=== PATIENT | female | born 1975 | race Caucasian/White ===

== ENCOUNTER 2021-09-22 10:54 | Outpatient (REF) | payer OTHER, SELFPAY ==
--- NOTE | ~2021-09-22 | XR_ITS ---
EXAMINATION: XR LUMBOSACRAL SPINE WITH OBLIQUES CLINICAL INFORMATION: Pain COMPARISON: None TECHNIQUE: AP, both oblique, and lateral views of the lumbar spine. Lateral view of the lumbosacral junction. FINDINGS: The vertebral bodies and posterior elements are normal. The disc spaces are preserved and the vertebral alignment is normal. The paraspinal soft tissues are normal. XR/XR lumbar spine 4V min IMPRESSION: Unremarkable examination.
--- NOTE | 2021-09-22 11:02 | ECG_ITS ---
Test Reason : F31.9 Blood Pressure : / mmHG Vent. Rate : 076 BPM Atrial Rate : 076 BPM P-R Int : 148 ms QRS Dur : 086 ms QT Int : 356 ms P-R-T Axes : 033 048 -20 degrees QTc Int : 400 ms Poor data quality, interpretation may be adversely affected Normal sinus rhythm Nonspecific T wave abnormality Abnormal ECG No previous ECGs available Referred By: Wei Hooker Electronically Signed By:
[2021-09-22 11:50] LABS: Estimated Average Glucose 97 mg/dL
[2021-09-22 11:55] LABS: Hematocrit 39.1 % (37.0-47.0); Mean Corpuscular HGB Conc 33.2 g/dl (31.0-35.0); Mean Corpuscular Hemoglobin 31.9 pg (27.0-33.0); Mean Corpuscular Volume 96.1 fL (80.0-98.0); Mean Platelet Volume 9.8 fL (9.4-12.3); Platelet Count 252 X10*3/uL (160-400); Red Blood Count 4.07 X10*6/uL (4.20-5.50); Red Cell Distribution Width 12.5 % (11.0-16.0); White Blood Count 5.2 X10*3/uL (4.8-10.8)
[2021-09-22 12:11] LABS: Lithium < 0.10 mmol/L (0.60-1.20)
[2021-09-22 12:21] LABS: Alanine Aminotransferase 8 U/L (0-31); Albumin Level 4.3 g/dL (3.5-5.0); Alkaline Phosphatase 63 U/L (39-117); Anion Gap 11 (12-20); Aspartate Amino Transferase 13 U/L (5-31); Bilirubin Total 0.5 mg/dL (0.0-1.0); Blood Urea Nitrogen 17 mg/dL (9-16); Calcium 8.9 mg/dL (8.4-10.2); Carbon Dioxide 19 mmol/L (22-29); Chloride 111 mmol/L (96-108); Cholesterol 134 mg/dL; Estimated Glomerular Filt Rate > 60; Glucose Fasting 109 mg/dL (60-99); HDL Cholesterol 51 mg/dL; LDL Cholesterol Calculated 58 mg/dl; Potassium 3.8 mmol/L (3.3-5.1); Sodium 137 mmol/L (135-145); Total Protein 6.7 g/dL (6.5-8.0); Triglycerides 129 mg/dL
[2021-09-22 12:26] LABS: TSH reflex Free T4 1.23 uIU/mL (0.32-4.0)
== END 2021-09-22 10:55 | disposition home or self-care (01) ==
LOC: HO.LAB 10:54
PROVIDERS: PCP Physician Assistant; Visit Provider Physician Assistant
DX: Z13.29 Encounter for screening for other suspected endocrine disorder (principal); I10 Essential (primary) hypertension; F31.9 Bipolar disorder, unspecified; M51.9 Unspecified thoracic, thoracolumbar and lumbosacral intervertebral disc disorder; Z79.899 Other long term (current) drug therapy
CPT/HCPCS: 36415; 72110; 80053; 80061; 80178; 83036; 84443; 85027; 93005

== ENCOUNTER 2022-02-06 16:57 | Outpatient (REF) | payer OTHER, SELFPAY ==
--- NOTE | ~2022-02-06 | XR_ITS ---
EXAMINATION: XR TIBIA AND FIBULA, LEFT CLINICAL INFORMATION: Contusion the left foot COMPARISON: None TECHNIQUE: AP and lateral views of the left tibia and fibula were obtained. FINDINGS: The bones and soft tissues are normal. No fracture. No osseous lesions. XR/XR tibia fibula LT 2V IMPRESSION: Normal left tibia and fibula.
== END 2022-02-06 16:58 | disposition home or self-care (01) ==
LOC: HO.HMGCX 16:57
PROVIDERS: PCP Physician Assistant; Visit Provider Internal Medicine
DX: S90.32XA Contusion of left foot, initial encounter (principal)
CPT/HCPCS: 73590

== ENCOUNTER → 2022-02-17 10:25 | Outpatient (BNVA) | payer OTHER, SELFPAY | PROVIDERS: PCP Physician Assistant; Visit Provider Physician Assistant | DX: M84.369A Stress fracture, unspecified tibia and fibula, initial encounter for fracture (principal) | CPT/HCPCS: 99202 ==

== ENCOUNTER 2022-02-24 08:54 | Outpatient (REF) | payer OTHER, SELFPAY ==
--- NOTE | ~2022-02-24 | MR_ITS ---
EXAMINATION: MRI LOWER LEG LEFT WITHOUT CONTRAST CLINICAL INFORMATION: Pain. Stress fracture. Patient reports medial tibial pain for 4 weeks. COMPARISON: Radiographs of the lower extremity from 02/06/2022. TECHNIQUE: Noncontrast MR imaging examination of the left lower extremity is performed. Axial T1-weighted images (without and with fat suppression), axial fat-suppressed T2-weighted, coronal T1-weighted and sagittal STIR images are obtained. FINDINGS: Alignment is normal at the knee and ankle. There is an area of subarticular edema-like signal change at the medial tibial plateau. No tibial plateau fracture. A horizontal stress fracture line in the medial tibial metaphysis measures 0.9 cm wide. Patchy bone marrow edema is present around the region of the stress fracture (grade 4 stress injury). There is mild edema along the periosteal surface of the mid to distal tibial diaphysis, and there is focal mild periosteal reaction along the medial surface of the distal diaphysis. This has the appearance of grade 2 to grade 3 stress injury. The fibula is normal. The visualized musculotendinous structures are normal. There is no evidence of Achilles tendinopathy. MR/MR lower leg LT wo con IMPRESSION: Bone marrow edema is present around a stress fracture of the proximal medial tibial metaphysis. Also, there is periosteal edema and focal mild periosteal reaction of the distal tibial diaphysis at the site of grade 2 to grade 3 stress injury.
== END 2022-02-24 08:55 | disposition home or self-care (01) ==
LOC: HO.MRI 08:54
PROVIDERS: PCP Physician Assistant; Visit Provider Physician Assistant
DX: M84.362A Stress fracture, left tibia, initial encounter for fracture (principal)
CPT/HCPCS: 73718

== ENCOUNTER → 2022-05-04 13:23 | Outpatient (BNVA) | payer OTHER, SELFPAY | PROVIDERS: Visit Provider Physician Assistant | DX: M84.362D Stress fracture, left tibia, subsequent encounter for fracture with routine healing (principal); M65.4 Radial styloid tenosynovitis [de Quervain] | CPT/HCPCS: 99212; J1100 ==

== ENCOUNTER 2022-06-26 14:20 | Outpatient (REF) | payer BC, OTHER, SELFPAY ==
--- NOTE | ~2022-06-26 | US_ITS ---
EXAMINATION: US VENOUS ULTRASOUND WITH DOPPLER LOWER EXTREMITY, LEFT CLINICAL INFORMATION: Edema and pain. COMPARISON: None TECHNIQUE: Ultrasound of the deep veins is performed from the hip to the calf with compression sonography and color and pulse Doppler assessment. Spectral analysis with color-flow imaging is performed. FINDINGS: There is normal venous compression and respiratory variation and augmented flow. The visualized common femoral vein, superficial femoral vein, profunda femoral vein, popliteal vein, and the trifurcation region shows no evidence of deep venous thrombosis. There is no significant popliteal fossa cyst. If the patient's symptoms persist, followup ultrasound in 5 days 7 days might be of value to exclude proximal propagation from a non-visualized calf vein. US/US venous duplex LE LT IMPRESSION: No DVT demonstrated in the left lower extremity.
== END 2022-06-26 14:21 | disposition home or self-care (01) ==
LOC: HO.US 14:20
PROVIDERS: PCP Physician Assistant; Visit Provider Physician Assistant
DX: R60.9 Edema, unspecified (principal); M79.89 Other specified soft tissue disorders
CPT/HCPCS: 93971

== ENCOUNTER 2023-09-05 13:45 | Outpatient (AMB) | payer BC, OTHER, SELFPAY ==
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
== END 2023-09-05 14:30 | disposition home or self-care (01) ==
LOC: HO.HOP 13:45
PROVIDERS: PCP Physician Assistant; Visit Provider Clinical Nurse Specialist Psychiatric/Mental Health
DX: F31.9 Bipolar disorder, unspecified (principal); F43.10 Post-traumatic stress disorder, unspecified; F90.0 Attention-deficit hyperactivity disorder, predominantly inattentive type; I10 Essential (primary) hypertension
CPT/HCPCS: 99214

== ENCOUNTER → 2023-09-05 13:45 | Outpatient (BNVA) | payer BC, OTHER, SELFPAY | PROVIDERS: PCP Physician Assistant; Visit Provider Clinical Nurse Specialist Psychiatric/Mental Health ==

== ENCOUNTER 2023-12-06 13:13 | Outpatient (AMB) | payer BC, SELFPAY ==
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
== END 2023-12-06 13:58 | disposition home or self-care (01) ==
LOC: HO.HOP 13:13
PROVIDERS: PCP Physician Assistant; Visit Provider Clinical Nurse Specialist Psychiatric/Mental Health
DX: F43.10 Post-traumatic stress disorder, unspecified (principal); F90.0 Attention-deficit hyperactivity disorder, predominantly inattentive type; F31.81 Bipolar II disorder
CPT/HCPCS: 90833; 99214

== ENCOUNTER → 2023-12-06 13:13 | Outpatient (BNVA) | payer BC, OTHER, SELFPAY | PROVIDERS: PCP Physician Assistant; Visit Provider Clinical Nurse Specialist Psychiatric/Mental Health ==

== ENCOUNTER 2024-03-06 12:58 | Outpatient (AMB) | payer BC, SELFPAY ==
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
== END 2024-03-06 13:30 | disposition home or self-care (01) ==
LOC: HO.HOP 12:58
PROVIDERS: PCP Physician Assistant; Visit Provider Clinical Nurse Specialist Psychiatric/Mental Health
DX: F31.81 Bipolar II disorder (principal); F90.0 Attention-deficit hyperactivity disorder, predominantly inattentive type
CPT/HCPCS: 99214

== ENCOUNTER → 2024-03-06 12:58 | Outpatient (BNVA) | payer BC, SELFPAY | PROVIDERS: PCP Physician Assistant; Visit Provider Clinical Nurse Specialist Psychiatric/Mental Health ==

== ENCOUNTER 2024-04-02 13:07 | Outpatient (AMB) | payer BC, SELFPAY ==
[2024-04-02 13:19] VITALS: BP 142/90; PULSE 103; O2SAT 98; BMI 25.5
--- NOTE | 2024-04-02 13:19 | A.OFFPC_ITS ---
Vital Signs 04/02/24 13:19 Height 4 ft 11 in Weight 126 lb 8 oz BMI 25.5 BP 142/90 H Blood Pressure Location Lt brachial Position Sitting Pulse 103 H Pulse Source Pulse Oximeter Pulse Oximetry (%) 98 Oxygen Delivery Method Room Air Intake Visit Reasons: PE - see comments Intake Note: Patient is here today for a physical. [email or web address] Java Developer Required: No Accompanied by: Self / Same As Patient Allergies SEASONAL ALLERGIES Allergy (Intermediate, Uncoded 04/02/24 13:28) SNEEZING, COUGH seasonal Allergy (Unknown, Uncoded 04/02/24 13:28) Rhinitis Medication List - Last Reconciled 04/02/24 by Wei Hooker PA-C amlodipine 5 mg PO DAILY 90 days clonazepam 1 mg PO BID dextroamphetamine-amphetamine 10 mg (Adderall) 10 mg PO DAILY dextroamphetamine-amphetamine 10 mg ER (Adderall XR) 10 mg PO DAILY dextroamphetamine-amphetamine 25 mg ER (Adderall XR) 25 mg PO QAM lithium carbonate ER 300 mg PO BEDTIME metronidazole 0.75%(37.5mg/5gram) 1 appful vaginal DAILY 5 days quetiapine (Seroquel) 300 mg PO BEDTIME quetiapine ER (Seroquel XR) 300 mg PO BEDTIME Tobacco use date assessed: 04/02/24 Dental Screening Dental Screen Date: 04/02/24 Did you have a dental visit in the last 12 months?: Yes Did you have a dental problem in the last 6 months where you did not have access to dental care?: No Was dental information given to patient?: Patient has dentist HPI PE - see comments HPI Details Patient is a 48 old female here today for routine annual physical. Patient has a past medical history significant for hypertension, irritable bowel syndrome, allergic rhinitis, ROSA MARIA, MDD Recently when has a partial hospitalization for her depression. Is seeing ( Bianka Lorenzo) whom manages her Mental health meds. .. --concerns< continues to left anterior s hin pain worse with long work hours and running. She was found to have stress fractures in her tibia found on MRI. PLAN: Limited weight-bearing exercises and will try to swim more cycle as alter yuhaaviatam. . ADHD: Patient continues to follow psychiatry who manages her stimulant ADHD medication. She feels her attention and focus is fairly well controlled in his able to function at work. .. Bipolar disorder: Her mood seems to be fairly stable with current dose of lithium. ... Hypertension: Blood pressure elevated today in office, she has been out of amlodipine 5 mg. She would like to restart this medication. Otherwise denies any headache, shortness of breath, chest discomfort or dizziness. Vaccines: UTD with COVID / TDAp , flu vaccine Generalist: needs REPORTING SPECIALIST appt through [facility] mammo: Followed by [facility] and gets mammograms, has microcalcifications. Colorectal cancer screening: Will refer to Gastroenterology [facility] Medical History Bipolar 1 disorder Social History (Updated 04/02/24 @ 13:27 by Wei Hooker PA-C) Housing: House Alcohol intake: current Alcohol intake frequency: a few times a month Patient Tobacco Use Status: Current everyday Tobacco user Cigarettes Per Day: 5 e-Cigarette/Vaping Use: Never Used service: No Current occupational status: employed Current occupation: RN at [employer] Cognitive needs: No Hearing needs: No Vision needs: No Questionnaire PHQ-9 Over the last 2 weeks, how often have you been bothered by any of the following problems? 1. Little interest or pleasure in doing things: not at all 2. Feeling down, depressed, or hopeless: not at all 3. Trouble falling or staying asleep, or sleeping too much: not at all 4. Feeling tired or having little energy: not at all 5. Poor appetite or overeating: not at all 6. Feeling bad about yourself - or that you are a failure or have let yourself or your family down: not at all 7. Trouble concentrating on things, such as reading the newspaper or watching television: not at all 8. Moving or speaking so slowly that other people could have noticed. Or the opposite - being so fidgety or restless that you have been moving around a lot more than usual: not at all 9. Thoughts that you would be better off or of hurting yourself in some way: not at all Total score: 0 Depression Screening Interpretation: Negative Depression Screening Done: Yes 27784 - PHQ-9 Billing: Yes Source: Developed by Drs. Brian Casas, Sandhya Mcdermott, Alexis Willoughby and colleagues, with an educational angel from [employer]. Thrive Questionnaire Date Thrive assessed: 04/02/24 I am a: Patient What is your living situation today?: I have a steady place to live Within the past 12 months, did the food you bought not last and you didn't have the money to get more?: Never true Within the past 12 months, did you worry whether your food would run out before you got money to buy more?: Never true Do you have trouble paying for medicines?: No Do you have trouble getting transportation to medical appointments?: No Do you have trouble paying your heating and electricity bill?: No Do you have trouble taking care of your child, family member or friend?: No Do you have trouble with day-to-day activities such as bathing, preparing meals, shopping, managing finances, etc.?: No Are you currently unemployed and looking for a job?: No Are you interested in more education?: No Please select the resources that you would like help with: None Currently or been in a relationship where the following occur: No concerns reported THRIVE Score: 0 AUDIT C Alcohol Use Questionnaire (AUDIT-C) 1. How often do you have a drink containing alcohol?: 2-3 times a week 2. How many drinks containing alcohol do you have on a typical day when you are drinking?: 1 or 2 3. How often do you have six or more drinks on one occasion?: Less than monthly Total Score: 4 ROSA MARIA-7 AMB Questionnaire ROSA MARIA-7 Date ROSA MARIA - 7 assessed: 04/02/24 Feeling nervous, anxious, or on edge: 1 = Several days Not being able to stop or control worryin = Several days Worrying too much about different things: 1 = Several days Trouble relaxin = Several days Being so restless that it is hard to sit still: 1 = Several days Becoming easily annoyed or irritable: 0 = Not at all Feeling afraid as if something awful might happen: 0 = Not at all Total ROSA MARIA-7 score (0-4 normal; 5-9 mild; 10-14 moderate; 15-21 severe): 5 Source: Developed by Drs. Brian Casas, Sandhya Mcdermott, Alexis Willoughby and colleagues, with an educational angel from [employer]. ROSA MARIA-7 Assessment Billing ROSA MARIA-7 Assessment Tool: ROSA MARIA-7 Assessment 91937 Review of Systems Const Denies body aches, Denies chills, Denies excessive sweating, Denies fatigue, Denies fever(s) and Denies headache(s) Eyes Denies blurry vision ENT Denies dysphagia, Denies vertigo, Denies dizziness, Denies headache(s), Denies hearing loss and Denies tinnitus Card Denies chest pain, Denies chest pain with activity, Denies syncope, Denies irregular heart rhythm and Denies dyspnea Resp Denies chest congestion, Denies cough, Denies hemoptysis, Denies dyspnea and Denies wheezing GI Denies abdominal pain, Denies melena, Denies hematochezia, Denies coffee ground emesis, Denies dysphagia, Denies diarrhea, Denies nausea and Denies vomiting Denies urinary frequency, Denies dysuria, Denies urinary hesitancy and Denies urinary urgency Musc Denies arthralgias, Denies limited range of motion, Denies muscle cramps and Denies muscle weakness Skin/Breast Denies rash and Denies skin ulcer Neuro Denies Abnormal speech present, Denies confusion, Denies vertigo, Denies dizziness, Denies syncope, Denies headache(s), Denies memory loss and Denies seizure-like activity Psych Denies anxiety, Denies confusion, Denies depression, Denies memory loss, Denies panic attacks and Denies paranoia Endo Denies excessive sweating, Denies fatigue, Denies flushing, Denies polydipsia and Denies polyuria Aller/Immun Denies wheezing Physical exam (Primary Care) Vital Signs: Last Vital Signs Pulse 103 H 04/02/24 13:19 BP 142/90 H 04/02/24 13:19 Pulse Ox 98 04/02/24 13:19 Oxygen Delivery Method Room Air 04/02/24 13:19 BMI result Body Mass Index 25.5 Tobacco/Smoking Status: Tobacco use Status Tobacco use date assessed 04/02/24 04/02/24 13:20 Patient Tobacco Use Status Current everyday Tobacco 04/02/24 13:27 e-Cigarette/Vaping Use Never Used 04/02/24 13:27 PHQ-9: PHQ-9 Score PHQ-9: Total score 0 04/02/24 13:22 Depression Screening Interpretation: Negative Thrive Assessment: Date of Thrive Assessment Date Thrive assessed 04/02/24 04/02/24 13:22 Currently or been in a relationship where the following occur: No concerns reported Const General: cooperative, comfortable, no acute distress, alert and awake; No confusion Orientation/consciousness: oriented to person, oriented to place, patient oriented x3 and No confusion HENMT Head: Yes normocephalic Ears: external ears normal and TM's normal bilaterally Face and sinus: No sinus tenderness Mouth: Normal oral and palatal mucosa present and tongue normal Teeth and gingiva: dentition normal and gingiva normal Throat: Yes posterior oropharynx normal, Yes tonsils normal and Yes uvula midline Eyes Conjunctivae: conjunctivae normal Sclerae: sclerae normal Pupils: Equal, round and reactive pupils present EOM: EOMs intact bilaterally Direct Ophthalmoscopy: No no photophobia Neck Neck: Yes no lymphadenopathy, No tender and Yes no JVD Thyroid: Thyroid normal Carotids: no bruits Chest Chest palpation & inspection: no tenderness Resp Effort & Inspection: normal respiratory effort, no audible wheezes, not labored and no stridor Auscultation: no crackles, no rales, no rhonchi and no wheezes Cardio Jugular venous distension: no JVD Rate: regular rate, not bradycardic and not tachycardic Rhythm: regular rhythm Bruits: no carotid bruits Peripheral pulses: Peripheral pulses 2+ throughout GI Inspection: Yes normal to inspection, No abdominal wall ecchymosis and No visible herniation Palpation (GI): Soft to palpation, nontender, no guarding, not rigid and No hepatosplenomegaly present Auscultation: normoactive bowel sounds General: Yes no CVA tenderness Back/Spine/Pelvis Back: no CVA tenderness and No back tenderness Cervical Spine: cervical ROM normal Thoracic/Lumbar Spine: thoracic and lumbar spine normal to inspection, straight leg raise negative bilaterally, No thoraco-lumbar ROM limited and No lumbar spinal tenderness Skin Lesions: no lesions Rashes: no rashes Wounds: no wounds Neuro General: oriented to person, oriented to place, patient oriented x3, CN's II-XI intact bilaterally and No confusion Cranial nerves: Yes Equal, round and reactive pupils present and Yes Normal accommodation reflex present Cognition (Neuro): normal cognition Speech: No Abnormal speech present Gait exam (Neuro): Normal gait present Motor exam (neuro): 5/5 motor strength present throughout Extrem Right upper extremity: full ROM; no cyanosis Left upper extremity: full ROM; no cyanosis Right lower extremity: no edema Left lower extremity: no edema Psych Appearance: grossly normal Mental Status: mental status grossly normal Affect: normal affect Attitude: cooperative Thought process: Normal thought process present Office Procedures Flu Questionnaire Does the patient have a severe egg allergy?: No Does the patient have severe life threatening allergies?: No Does the patient have a fever or illness today?: No Immunizations Fluarix Triv [id number] (PF) 45 mcg (15 mcg x 3)/0.5 mL IM syringe Performing Provider: Wei Hooker PA-C [facility] Administered by: IRVIN Rdz on 04/02/24 13:21 Dose Route Admin Location Dispensed Lot Number Expiration Date ND Low Pressure Firer 0.5 mL IM Left Deltoid 0.5 mL [id number] 12/15/24 54626-959-22 [employer] VIS Given Date VIS Provided VIS Publication Date 04/02/24 Single Vaccine 21 Eligibility Eligibility Date Funding Source Not [facility] Eligible 04/02/24 Private Coding Level of Care Code Est Pt Prev Care 40-64y(65282) Diagnoses Annual physical exam Z00.00 Primary hypertension I10 Hypertension type: primary hypertension Attention deficit hyperactivity disorder (ADHD), predominantly inattentive type F90.0 Attention deficit-hyperactivity disorder type: predominantly inattentive Bipolar II disorder, most recent episode major depressive F31.81 Colon cancer screening Z12.11 Cervical cancer screening Z12.4 Additional Codes ROSA MARIA-7 Assessment Billing - ROSA MARIA-7 Assessment Tool: ROSA MARIA-7 Assessment 65853 ([id number]) Assessment & Plan Assessment & Plan (1) Annual physical exam: Code(s): Z00.00 - Encounter for general adult medical examination without abnormal findings Category: Medical Plan: As per HPI (2) HTN (hypertension): Code(s): I10 - Essential (primary) hypertension Category: Medical Qualifiers: Hypertension type: primary hypertension Qualified Code(s): I10 - Essential (primary) hypertension Plan: Patient's blood pressure slightly elevated today in office. She attributes her higher blood pressure to her stimulant medication. At times takes 45 mg Adderall daily. (3) ADHD: Code(s): F90.9 - Attention-deficit hyperactivity disorder, unspecified type Category: Medical Qualifiers: Attention deficit-hyperactivity disorder type: predominantly inattentive Qualified Code(s): F90.0 - Attention-deficit hyperactivity disorder, predominantly inattentive type Plan: As per HPI patient is followed by Psychiatry and feels her ADHD has been well controlled with current stimulant medication. She works as a full-time RN in a ER. (4) Bipolar II disorder, most recent episode major depressive: Code(s): F31.81 - Bipolar II disorder Category: Medical Plan: Patient continues on lithium managed by her psychiatrist. Her mood seems to stable. (5) Colon cancer screening: Code(s): Z12.11 - Encounter for screening for malignant neoplasm of colon Category: Medical Plan: Patient willing to do colonoscopy (6) Cervical cancer screening: Code(s): Z12.4 - Encounter for screening for malignant neoplasm of cervix Category: Medical Plan: Patient has upcoming appointment with podiatric assistant at [facility], needs up-to-date Pap screening. Orders: Orders Comprehensive [place]. Panel Fast Today I10 - Essential (primary) hypertension Lipid Panel Today I10 - Essential (primary) hypertension Influenza [id number] Immunization Today Z23 - Encounter for immunization [place] Today F31.81 - Bipolar II disorder Referrals Gastroenterology Referral Z12.11 - Encounter for screening for malignant neoplasm of colon Patient Instructions: Goal: Blood pressure to be below 140/90 Barriers: Adherence to physical activity and healthy eating habits
== END 2024-04-02 13:45 | disposition home or self-care (01) ==
PROVIDERS: PCP Physician Assistant; Visit Provider Physician Assistant
DX: Z00.00 Encounter for general adult medical examination without abnormal findings (principal); I10 Essential (primary) hypertension; F90.0 Attention-deficit hyperactivity disorder, predominantly inattentive type; F31.81 Bipolar II disorder; Z12.11 Encounter for screening for malignant neoplasm of colon; Z12.4 Encounter for screening for malignant neoplasm of cervix; Z23 Encounter for immunization

== ENCOUNTER → 2024-04-02 13:07 | Outpatient (BNVA) | payer BC, SELFPAY | PROVIDERS: PCP Physician Assistant; Visit Provider Physician Assistant | DX: Z00.00 Encounter for general adult medical examination without abnormal findings (principal); I10 Essential (primary) hypertension; F90.0 Attention-deficit hyperactivity disorder, predominantly inattentive type; F31.81 Bipolar II disorder; Z23 Encounter for immunization | CPT/HCPCS: 90471; 90656; 96127 ==

== ENCOUNTER 2024-05-01 16:49 | Outpatient (AMB) | payer BC, SELFPAY ==
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
== END 2024-05-01 16:51 | disposition home or self-care (01) ==
LOC: HO.HOP 16:49
PROVIDERS: PCP Physician Assistant; Visit Provider Clinical Nurse Specialist Psychiatric/Mental Health
DX: F31.81 Bipolar II disorder (principal); F43.10 Post-traumatic stress disorder, unspecified; F90.0 Attention-deficit hyperactivity disorder, predominantly inattentive type
CPT/HCPCS: 90833; 99214

== ENCOUNTER 2024-08-18 13:49 | Outpatient (AMB) | payer BC, SELFPAY ==
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
--- OUTSIDE RECORDS SUMMARY | 2024-08-18 16:20 | XMS_ITS | Clinical Summary ---
Author Organization [facility] Address [address] [place] [address] Care Team Providers Care Barrel Filler Name Role Phone Unavailable Primary Care Provider Unavailabl e Social History Tobacco Use Types Packs/Day Years Used Date Smoking Tobacco: Never Assessed Sex and Gender Information Value Date Recorded Sex Assigned at Not on file Gender Identity Not on file Sexual Orientation Not on file Plan of Treatment Health Maintenance Due Date Last Done Comments Hepatitis C Virus Screening 1974 HIV Screening 1987 DTaP/Tdap/Td Vaccines (1 - Tdap) 1993 Hepatitis B Vaccines (1 of 3 - 19+ 3-dose series) 1993 COVID-19 Vaccine ( - 2023-2 5 season) 2024 Pneumococcal Vaccines 50+ (1 of 1 - PCV) 2024 Zoster (Shingles) Vaccine (1 of 2) 2024 Pneumococcal Vaccine: Pediat alfredo (0-5 Years) and At-Risk Patients (6 to 49 Years) Aged Out No longer eligible b ased on patient's age to complete this topic
== END 2024-08-18 13:49 | disposition home or self-care (01) ==
LOC: HO.HOP 13:49
PROVIDERS: PCP Physician Assistant; Visit Provider Clinical Nurse Specialist Psychiatric/Mental Health
DX: F31.81 Bipolar II disorder (principal); F43.10 Post-traumatic stress disorder, unspecified; F90.0 Attention-deficit hyperactivity disorder, predominantly inattentive type
CPT/HCPCS: 99214

== ENCOUNTER 2025-01-05 14:43 | Outpatient (AMB) | payer BC, SELFPAY ==
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
--- OUTSIDE RECORDS SUMMARY | 2025-01-05 15:31 | XMS_ITS | Clinical Summary ---
Author Organization [facility] Address [address] [place] [address] Care Team Providers Care Real Estate Sales Supervisor Name Role Phone Unavailable Primary Care Provider Unavailabl e Social History Tobacco Use Types Packs/Day Years Used Date Smoking Tobacco: Never Assessed Comments Unknown Sex and Gender Information Value Date Recorded Sex Assigned at Not on file Legal Sex Female 4:11 PM EDT Gender Identity Not on file Sexual Orientation Not on file Plan of Treatment Health Maintenance Due Date Last Done Comments Hepatitis C Virus Screening 1974 HIV Screening 1987 DTaP/Tdap/Td Vaccines (1 - Tdap) 1993 Hepatitis B Vaccines (1 of 3 - 19+ 3-dose series) 07/20 COVID-19 Vaccine ( - 2023- season) 2024 Pneumococcal Vaccines 50+ (1 of 1 - PCV) 2024 Zoster (Shingles) Vaccine (1 of 2) 2024
== END 2025-01-05 15:06 | disposition home or self-care (01) ==
LOC: HO.HOP 14:43
PROVIDERS: PCP Physician Assistant; Visit Provider Clinical Nurse Specialist Psychiatric/Mental Health
DX: F31.81 Bipolar II disorder (principal); F43.11 Post-traumatic stress disorder, acute; F90.0 Attention-deficit hyperactivity disorder, predominantly inattentive type
CPT/HCPCS: 90833; 99214

== ENCOUNTER 2025-01-12 11:22 | Outpatient (REF) | payer BC, SELFPAY ==
[2025-01-12 11:37] LABS: MANUAL DIFF FLAG NO
[2025-01-12 11:50] LABS: Hematocrit 39.6 % (37.0-47.0); Hemoglobin 13.2 g/dl (12.0-16.0); Imm Gran Abs Auto 0.02 X10*3/uL (0.00-0.03); Imm Gran Pct Auto 0.4 % (0.0-0.4); Lymphocytes Absolute Auto 1.8 X10*3/uL (1.2-4.9); Mean Corpuscular HGB Conc 33.3 g/dl (31.0-35.0); Mean Corpuscular Hemoglobin 32.4 pg (27.0-33.0); Mean Corpuscular Volume 97.1 fL (80.0-98.0); NRBC Abs Auto 0.000 X10*3/uL (0.0-0.012); NRBC Pct Auto 0.0 /100WBC (0.0-0.2); Platelet Count 239 X10*3/uL (160-400); Red Blood Count 4.08 X10*6/uL (4.20-5.50); White Blood Count 5.1 X10*3/uL (4.8-10.8)
[2025-01-12 12:22] LABS: Lithium 0.39 mmol/L (0.60-1.20)
--- OUTSIDE RECORDS SUMMARY | 2025-01-12 12:38 | XMS_ITS | Clinical Summary ---
Author Organization [facility] Address [address] [place] [address] Care Team Providers Care Gate Attendant Name Role Phone Unavailable Primary Care Provider [...]
[2025-01-12 12:39] LABS: Alanine Aminotransferase 22 U/L (0-31); Albumin Level 4.6 g/dL (3.5-5.0); Alkaline Phosphatase 59 U/L (39-117); Anion Gap 17 (12-20); Aspartate Amino Transferase 31 U/L (5-31); Blood Urea Nitrogen 21 mg/dL (9-16); Calcium 9.4 mg/dL (8.4-10.2); Carbon Dioxide 17 mmol/L (22-29); Chloride 109 mmol/L (96-108); Estimated Glomerular Filt Rate > 60; Iron 116 mcg/dL (30-160); Magnesium 2.0 mg/dL (1.6-2.6); Percent Iron Saturation 43 % (15-50); Potassium 3.7 mmol/L (3.3-5.1); Sodium 139 mmol/L (135-145); Total Iron Binding Capacity 272 mcg/dL (228-428); Total Protein 6.9 g/dL (6.5-8.0); Unsaturated Iron Binding 156 ug/dL
[2025-01-12 12:47] LABS: Ferritin 55 ng/mL (10-250)
[2025-01-12 13:00] LABS: Folate 9.0 ng/mL (> or = 4.0); Vitamin B12 207 pg/mL (200-900)
[2025-01-13 03:23] LABS: Transferrin 248 mg/dL (188-341)
== END 2025-01-12 11:23 | disposition home or self-care (01) ==
LOC: HO.LAB 11:22
PROVIDERS: PCP Physician Assistant; Visit Provider Clinical Nurse Specialist Psychiatric/Mental Health
DX: Z13.29 Encounter for screening for other suspected endocrine disorder (principal); F90.0 Attention-deficit hyperactivity disorder, predominantly inattentive type; F31.81 Bipolar II disorder; R63.6 Underweight
CPT/HCPCS: 36415; 80053; 80178; 82607; 82728; 82746; 83540; 83735; 84443; 84466; 85025

== ENCOUNTER 2025-01-22 15:06 | Outpatient (AMB) | payer BC, SELFPAY ==
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
--- OUTSIDE RECORDS SUMMARY | 2025-01-22 15:08 | XMS_ITS | Clinical Summary ---
Author Organization [facility] Address [address] [place] [address] Care Team Providers Care Thread Separator Name Role Phone Unavailable Primary Care Provider [...]
== END 2025-01-22 15:07 | disposition home or self-care (01) ==
LOC: HO.HOP 15:06
PROVIDERS: PCP Physician Assistant; Visit Provider Clinical Nurse Specialist Psychiatric/Mental Health
DX: F90.0 Attention-deficit hyperactivity disorder, predominantly inattentive type (principal); F43.10 Post-traumatic stress disorder, unspecified; F31.81 Bipolar II disorder
CPT/HCPCS: 99214

== ENCOUNTER 2025-02-26 12:00 | Outpatient (AMB) | payer BC, SELFPAY ==
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
--- OUTSIDE RECORDS SUMMARY | 2025-02-26 16:17 | XMS_ITS | Clinical Summary ---
Author Organization [facility] Address [address] [place] [address] Care Team Providers Care Facilities Painter Name Role Phone Unavailable Primary Care Provider [...] of 3 - 19+ 3-dose series) 07/20 Pneumococcal Vaccines 50+ (1 of 1 - PCV) 2024 Zoster (Shingles) Vaccine (1 of 2) 2024 COVID-19 Vaccine (1 - 2023- season) 2025
== END 2025-02-26 12:01 | disposition home or self-care (01) ==
LOC: HO.HOP 12:00
PROVIDERS: PCP Physician Assistant; Visit Provider Clinical Nurse Specialist Psychiatric/Mental Health
DX: F31.81 Bipolar II disorder (principal); F90.0 Attention-deficit hyperactivity disorder, predominantly inattentive type; F43.10 Post-traumatic stress disorder, unspecified
CPT/HCPCS: 99214

== ENCOUNTER 2025-05-21 15:40 | Outpatient (AMB) | payer BC, SELFPAY ==
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
--- OUTSIDE RECORDS SUMMARY | 2025-05-21 21:47 | XMS_ITS | Clinical Summary ---
Author Organization [facility] Address [address] [place] [address] Care Team Providers Care Manager [employer] Name Role Phone Unavailable Primary Care Provider [...] COVID-19 Vaccine (1 - 2023- season) 2025 RSV Vaccine 50 years and old er and Patients (1 - 1-dose 75+ series) 2049
== END 2025-05-21 15:41 | disposition home or self-care (01) ==
LOC: HO.HOP 15:40
PROVIDERS: PCP Physician Assistant; Visit Provider Clinical Nurse Specialist Psychiatric/Mental Health
DX: F31.81 Bipolar II disorder (principal); F90.0 Attention-deficit hyperactivity disorder, predominantly inattentive type; F43.11 Post-traumatic stress disorder, acute
CPT/HCPCS: 99214